=== PATIENT | female | born 1965 | race Two or more races ===

== ENCOUNTER 2023-08-02 08:53 | Emergency (ER) | payer OTHER ==
[~2023-08-02] VITALS: Ht 167.6 cm; Wt 68.0 kg
[2023-08-02] MEDS ORDERED: QUETIAPINE FUM400 M1 PO (09:19)
[2023-08-02] MEDS ORDERED: DESVENLAFAXINE50 MG PO (09:20)
[2023-08-02] MEDS ORDERED: ATORVASTATIN CA40 MG PO (09:20)
[2023-08-02] MEDS ORDERED: CLONAZEPAM2 M1 PO (09:20)
[2023-08-02 10:36] LABS: HEMATOCRIT 32.1 % (36.0-45.00); HEMOGLOBIN 11.2 g/dL (12.0-15.00); MEAN CELL VOLUME 86.9 fL (80.00-100.00); MEAN CORPUSCULAR HEMOGLOBIN 30.3 pg (27.00-32.0); MEAN CORPUSCULAR HGB CONC 34.9 g/dl (32.0-36.0); PLATELET COUNT 65 K/uL (150-450); RED BLOOD COUNT 3.69 M/uL (4.00-6.00); RED CELL DISTRIBUTION WIDTH 18.2 % (11.5-14.5)
[2023-08-02 11:01] LABS: ALBUMIN 2.2 gm/dL (3.4-5.0); BILIRUBIN TOTAL 4.31 mg/dL (0.3-1.2); BILIRUBIN,CONJUGATED 2.69 mg/dL (0.0-0.2); BILIRUBIN,UNCONJUGATED 1.62 mg/dL (0.0-0.6); CALCIUM 8.3 mg/dL (8.5-10.1); CREATININE SERUM 0.64 mg/dL (0.55-1.02); GFR 94.65; GLOBULINA 4.4 G/DL (2.4-3.5); TOTAL PROTEIN 6.6 gm/dL (6.4-8.2)
[2023-08-02 11:02] LABS: INR 1.79
[2023-08-02 11:11] LABS: PARTIAL THROMBOPLASTIN TIME 38.2 SECONDS (22.0-34.0)
[2023-08-02 11:37] LABS: POTASSIUM 2.85 mEq/L (3.5-5.1)
== END 2023-08-02 13:52 | disposition home or self-care (01) ==
LOC: ER 08:53
PROVIDERS: Emergency Medicine
DX: Z45.2 Encounter for adjustment and management of vascular access device (principal); K74.60 Unspecified cirrhosis of liver; Z88.6 Allergy status to analgesic agent; Z88.0 Allergy status to penicillin